=== PATIENT | male | born 1990 | race Caucasian/White ===

== ENCOUNTER 2019-04-16 20:48 | Emergency (ER) | payer MEDICAID ==
[~2019-04-16] VITALS: Ht 182.9 cm; Wt 87.0 kg
[2019-04-16 20:51] VITALS: BP 109/67
[2019-04-16] MEDS ORDERED: DICL25TA12 PO (21:27)
[2019-04-16] MEDS ORDERED: LEVO500T2 PO (21:27)
== END 2019-04-16 21:37 | disposition home or self-care (01) ==
LOC: ER 20:50
DX: N50.82 Scrotal pain (principal); Z90.89 Acquired absence of other organs; Z79.2 Long term (current) use of antibiotics; Z88.0 Allergy status to penicillin; Z88.2 Allergy status to sulfonamides
CPT/HCPCS: 99283